=== PATIENT | female | born 1990 | race African-American/Black ===

== ENCOUNTER 2020-10-17 17:23 | Emergency (ER) | payer SELFPAY ==
[~2020-10-17] VITALS: Ht 167.6 cm; Wt 73.0 kg
[2020-10-17 17:27] VITALS: BP 123/77
[2020-10-17] MEDS ORDERED: HYDROCODONE/ACETAMINOPHEN 5/325MG TABLET PO ONE (21:15)
[2020-10-17] MEDS ORDERED: FLUORESCEIN SODIUM 1MG/STRIP RIGHTEYE ONE (21:15)
== END 2020-10-18 00:18 | disposition home or self-care (01) ==
LOC: ER 17:23
DX: S00.11XA Contusion of right eyelid and periocular area, initial encounter (principal); Y08.89XA Assault by other specified means, initial encounter; Y93.89 Activity, other specified; Y92.89 Other specified places as the place of occurrence of the external cause; Y99.8 Other external cause status
CPT/HCPCS: 70486; 81025; 99285